=== PATIENT | female | born 1965 | race Caucasian/White ===

== ENCOUNTER 2021-08-18 15:58 | Inpatient (IN) | payer MEDICAID, SELFPAY ==
[~2021-08-18] VITALS: Ht 162.6 cm; Wt 80.7 kg
[2021-08-18 16:14] VITALS: BP_SYST 116
--- NOTE | 2021-08-18 16:14 | NUR ---
Pt to bed 8 for evaluation.
--- NOTE | 2021-08-18 16:15 | NUR ---
Pt AAO and ambulatory reporting blood in urine, cough, congestion, and SOB x 3 days. Pt reports that since she had Covid this past June that she has not been the same. Pt has had multiple episodes of vomiting today, reports headache, and rates pain 7/10 on pain scale. Pt also states that her appetite has been poor since then as well.
--- NOTE | 2021-08-18 16:15 | NUR ---
Dr. Wagner at bedside to assess.
[2021-08-18] MEDS ORDERED: ONDANSETRON 4 MG ODT TAB PO ONE (16:30)
--- NOTE | 2021-08-18 16:35 | NUR ---
Lab at bedside for blood draw.
[2021-08-18 16:45] LABS: BASOPHILS % (AUTO) 0.3 % (0.0-2.0); HEMATOCRIT 40.6 % (36-48); LYMPHOCYTES # (AUTO) 0.4 K/uL (1.0-5.5); LYMPHOCYTES % (AUTO) 2.6 % (20.5-51.5); MEAN CORPUSCULAR HEMOGLOBIN 36 pg (27-31); MEAN CORPUSCULAR HGB CONC 35 % (32-36); MEAN CORPUSCULAR VOLUME 104 fL (79.0-98.0); MONOCYTES # (AUTO) 0.5 K/uL (0.0-1.0); MONOCYTES % (AUTO) 3.3 % (1.7-9.3); NEUTROPHILS # (AUTO) 14.8 K/uL (1.8-7.7); NEUTROPHILS % (AUTO) 93.8 % (40.0-70.0); PLATELET COUNT (AUTO) 263 K/uL (130-430); RED BLOOD CELL COUNT(AUTO) 3.92 MIL/uL (4.2-6.2); RED CELL DISTRIBUTION WIDTH 16.4 % (9.0-15.0); WHITE BLOOD COUNT (AUTO) 15.8 K/uL (4.8-10.8)
[2021-08-18 16:57] LABS: BILIRUBIN,URINE 2+ (NEGATIVE); BLOOD, URINE 1+ (NEGATIVE); COLOR,URINE ORANGE (YELLOW); GLUCOSE,URINE TRACE (NEGATIVE); KETONES,URINE 1+ (NEGATIVE); LEUKOCYTE ESTERASE ,URINE 1+ (NEGATIVE); NITRITE, URINE POSITIVE (NEGATIVE); PH,URINE 5.5 (5.0-8.0); PROTEIN URINE 2+ (NEGATIVE)
[2021-08-18 17:07] LABS: INR 1.1 (0.8-1.2); PROTHROMBIN TIME 11.3 SECS (9.5-12.5)
[2021-08-18] MEDS ORDERED: NACL 0.9% 1,000 ML IV ONE (17:15)
[2021-08-18] MEDS ORDERED: METOCLOPRAMIDE HCL 10 MG/2 ML VIAL IVP ONE (17:15)
[2021-08-18] MEDS ORDERED: DIPHENHYDRAMINE INJ 50 MG/ML VIAL IVP ONE (17:15)
--- NOTE | 2021-08-18 17:15 | NUR ---
# 20 gauge angiocath placed to Right AC. Use of asceptic technique. Opsite placed over site. Blood return noted. Blood for lab drawn from site. Flushed with 10 cc of normal saline. No evidence of infiltration noted. Patient tolerated well.
--- NOTE | 2021-08-18 17:38 | NUR ---
Covid swab obtained and sent to lab for analysis.
[2021-08-18] MEDS ORDERED: VANCOMYCIN HCL 1000 MG/VIAL IV ONE (17:45)
[2021-08-18] MEDS ORDERED: PIPERACILLIN/TAZO 3.375 GM in NS 50 ML IV ONE (17:45)
[2021-08-18] MEDS ORDERED: PIPERACILLIN/TAZOBACTAM 3.375 GM/VIAL (ZOSYN) IV ONE ×2 (17:45→22:50)
[2021-08-18] MEDS ORDERED: NS 1000 ML IV.SOLN IV ONE (17:45)
[2021-08-18] MEDS ORDERED: VANCOMYCIN HCL 1,000 MG in NS 250 ML IV ONE (17:45)
[2021-08-18 17:56] LABS: ALBUMIN 2.6 g/dL (3.4-4.8); CALCIUM 8.4 mg/dL (8.4-11.0); CREATININE 1.04 mg/dL (0.55-1.30); TOTAL BILIRUBIN 1.9 mg/dL (0.0-1.0)
--- NOTE | 2021-08-18 18:14 | NUR ---
Pt resting quietly in no distress awaiting possible admission.
--- NOTE | 2021-08-18 18:33 | NUR ---
Portable CXR done at bedside.
[2021-08-18 18:48] LABS: C-REACTIVE PROTEIN QUANT 2.6 mg/dL (0-0.5)
--- NOTE | 2021-08-18 18:54 | NUR ---
Admit orders received from Dr. Ballard, pt to go to tele. Called to request bed placement, charge will call me back after shift change.
[2021-08-18] MEDS ORDERED: FAMOTIDINE PF 20 MG/2 ML VIAL IVP ONE (19:00)
--- NOTE | 2021-08-18 19:02 | NUR ---
Administered Pepcid 20mg IVP to Pt. Pt tolerated well. Medication verified with second RN Cong Schaffer.
[2021-08-18 19:05] LABS: CLARITY/URINE HAZY (CLEAR); UROBILINOGEN,URINE >=8 (0.2-1.0)
[2021-08-18] MEDS ORDERED: KCL 20 mEq in 100 mL (PREMIX) 200 ML IV ONE (19:05)
[2021-08-18] MEDS ORDERED: FAMOTIDINE PF 20 MG/2 ML VIAL ONE (19:05)
[2021-08-18 19:08] LABS: BACTERIA,URINE MANY /HPF (None Seen); RBC,URINE 20-50 /HPF (0-3)
--- NOTE | 2021-08-18 19:15 | NUR ---
# 20 gauge angiocath placed to left AC. Use of asceptic technique. Opsite placed over site. Blood return noted. Blood for lab drawn from site. Flushed with 10 cc of normal saline. No evidence of infiltration noted. Patient tolerated well.
--- NOTE | 2021-08-18 19:19 | NUR ---
Report given to AMALIA Alford who will assume care of pt.
[2021-08-18 19:30] LABS: TRICHOMONAS,URINE None Seen /HPF (None Seen); YEAST,URINE None Seen /HPF (None Seen)
--- NOTE | 2021-08-18 21:09 | NUR ---
Patient will be admitted to care of . Admitted to Telemetry unit. Will go to room 102B. Belongings list completed. Complete and up to date summary report printed. SBAR report to be given at bedside with opportunity for questions.
--- NOTE | 2021-08-18 21:16 | NUR ---
ADMIT NOTE Received pt from ER to the floor with a diagnosis of INTRACTABLE VOMITING. Admission process initiated. patient oriented to pain management, safety and call light-teach back done.
--- NOTE | 2021-08-18 21:31 | NUR ---
Paged Dr. Ballard [phone], s/w Nirmala
[2021-08-18 21:32] VITALS: BP_SYST 121
--- NOTE | 2021-08-18 21:42 | NUR ---
Dr. Ballard rounds Dr. Ballard at bedside to see patient
[2021-08-18] MEDS ORDERED: METOCLOPRAMIDE HCL 10 MG/2 ML VIAL IVP PRN (21:45)
[2021-08-18] MEDS ORDERED: POTASSIUM CHLORIDE 20 MEQ TAB.PRT.SR PO ONE (21:45)
[2021-08-18] MEDS ORDERED: KCL 20 mEq in 100 mL (PREMIX) 100 ML IV ONE (22:00)
[2021-08-18] MEDS ORDERED: MAG-AL HYDROX/SIMETH 30 ML UDC PO PRN (22:00)
[2021-08-18] MEDS: NACL 0.9% 1,000 ML IV SCH (22:23)
[2021-08-18] MEDS: ACETAMINOPHEN 325 MG TABLET PO PRN (22:27)
[2021-08-18] MEDS: ONDANSETRON HCL 4 MG/2 ML VIAL IVP PRN (22:50)
[2021-08-19] MEDS ORDERED: KCL 20 mEq in 100 mL (PREMIX) 100 ML IV ONE
--- NOTE | 2021-08-19 00:12 | NUR ---
PATIENT RESTING: Patient resting quietly. No acute distress noted. Vital signs within normal range.
[2021-08-19] MEDS: PIPERACILLIN/TAZO 3.375/DEX-IS 50 ML IV SCH ×4 (00:15→17:20)
[2021-08-19 00:18] VITALS: BP_SYST 154
[2021-08-19 06:24] LABS: BASOPHILS # (AUTO) 0.1 K/uL (0.0-0.2); BASOPHILS % (AUTO) 0.7 % (0.0-2.0); EOSINOPHILS # (AUTO) 0.1 K/uL (0.0-0.4); EOSINOPHILS % (AUTO) 0.8 % (0.0-4.0); HEMATOCRIT 33.8 % (36-48); HEMOGLOBIN 11.7 g/dL (12.0-16.0); LYMPHOCYTES # (AUTO) 0.7 K/uL (1.0-5.5); LYMPHOCYTES % (AUTO) 7.9 % (20.5-51.5); MEAN CORPUSCULAR HEMOGLOBIN 37 pg (27-31); MEAN CORPUSCULAR HGB CONC 35 % (32-36); MEAN CORPUSCULAR VOLUME 105 fL (79.0-98.0); MONOCYTES # (AUTO) 0.5 K/uL (0.0-1.0); MONOCYTES % (AUTO) 5.6 % (1.7-9.3); PLATELET COUNT (AUTO) 201 K/uL (130-430); RED BLOOD CELL COUNT(AUTO) 3.21 MIL/uL (4.2-6.2); RED CELL DISTRIBUTION WIDTH 16.5 % (9.0-15.0); WHITE BLOOD COUNT (AUTO) 8.3 K/uL (4.8-10.8)
--- NOTE | 2021-08-19 06:38 | NUR ---
CLOSING NOTES PATIENT AWAKE, NO COMPLAINTS AT THIS TIME, VITALS STABLE. ALL NEEDS ATTENDED TO. SAFETY MEASURES MAINTAINED. CALL LIGHT PLACED WITHIN REACH.
[2021-08-19 07:01] LABS: ALBUMIN 1.9 g/dL (3.4-4.8); CREATININE 0.65 mg/dL (0.55-1.30); TOTAL BILIRUBIN 1.7 mg/dL (0.0-1.0)
[2021-08-19] MEDS: NACL 0.9% 1,000 ML IV SCH ×2 (07:45→13:27)
[2021-08-19 08:00] VITALS: BP_SYST 130
[2021-08-19] MEDS: ONDANSETRON HCL 4 MG/2 ML VIAL IVP PRN ×2 (08:16→20:19)
[2021-08-19] MEDS: FAMOTIDINE PF 20 MG/2 ML VIAL IVP SCH ×2 (08:17→20:19)
[2021-08-19] MEDS: NEPHROVITE, (FOLIC ACID/VITAMIN B COMP W-C 1 TAB) PO SCH (08:19)
[2021-08-19] MEDS: THIAMINE HCL 100 MG TABLET PO SCH (08:19)
[2021-08-19] MEDS: ACETAMINOPHEN 325 MG TABLET PO PRN ×2 (08:19→16:51)
[2021-08-19] MEDS ORDERED: POTASSIUM CHLORIDE 20 MEQ TAB.PRT.SR PO SCH ×2 (09:00→21:00)
[2021-08-19 09:13] LABS: CALCIUM 7.1 mg/dL (8.4-11.0)
[2021-08-19] MEDS ORDERED: POTASSIUM CHLORIDE 20 MEQ/PKT PACKET PO ONE (10:45)
[2021-08-19] MEDS: LOPERAMIDE HCL 2 MG CAPSULE PO PRN ×2 (14:59→22:36)
[2021-08-19] MEDS ORDERED: POTASSIUM CHLORIDE 20 MEQ TAB.PRT.SR PO ONE (15:30)
[2021-08-19] MEDS ORDERED: MENTHOL/ZINC OXIDE 113 GM OINT. TP PRN (17:30)
[2021-08-19 18:00] VITALS: BP_SYST 128
--- NOTE | 2021-08-19 19:00 | NUR ---
RECEIVED BEDSIDE REPORT FROM RN. PT IN BED AWAKE RESTING IN BED. PT AOX4 4 ABLE TO MAKE NEEDS KNOWN. PT HAS BRP. CALL LIGHT WITHIN REACH. BED LOCKED IN LOWEST POSITION. WILL CONTINUE TO MONITOR.
--- NOTE | 2021-08-19 19:09 | NUR ---
Paged Dr. Ballard s/w Nirmala
[2021-08-19 20:17] VITALS: BP_SYST 115
[2021-08-19] MEDS: POTASSIUM CHLORIDE 20 MEQ TAB.PRT.SR PO SCH (20:18)
[2021-08-19] MEDS: RIFAXIMIN 550 MG TABLET PO SCH (20:18)
[2021-08-19] MEDS: traMADol HCL HCL 50 MG TABLET (ULTRAM) PO PRN (20:19)
[2021-08-19] MEDS: TEMAZEPAM 15 MG CAPSULE PO PRN (22:37)
[2021-08-20] MEDS: PIPERACILLIN/TAZO 3.375/DEX-IS 50 ML IV SCH ×5 (00:57→23:05)
[2021-08-20] MEDS: NACL 0.9% 1,000 ML IV SCH ×3 (03:45→23:05)
[2021-08-20 04:28] VITALS: BP_SYST 112
[2021-08-20] MEDS: traMADol HCL HCL 50 MG TABLET (ULTRAM) PO PRN ×3 (04:33→18:03)
[2021-08-20 06:53] LABS: BASOPHILS % (AUTO) 0.9 % (0.0-2.0); EOSINOPHILS # (AUTO) 0.2 K/uL (0.0-0.4); EOSINOPHILS % (AUTO) 3.4 % (0.0-4.0); HEMATOCRIT 34.7 % (36-48); HEMOGLOBIN 11.8 g/dL (12.0-16.0); LYMPHOCYTES # (AUTO) 1.2 K/uL (1.0-5.5); LYMPHOCYTES % (AUTO) 21.3 % (20.5-51.5); MEAN CORPUSCULAR HEMOGLOBIN 36 pg (27-31); MEAN CORPUSCULAR HGB CONC 34 % (32-36); MEAN CORPUSCULAR VOLUME 106 fL (79.0-98.0); MONOCYTES # (AUTO) 0.4 K/uL (0.0-1.0); MONOCYTES % (AUTO) 6.8 % (1.7-9.3); NEUTROPHILS # (AUTO) 3.7 K/uL (1.8-7.7); NEUTROPHILS % (AUTO) 67.6 % (40.0-70.0); PLATELET COUNT (AUTO) 202 K/uL (130-430); RED BLOOD CELL COUNT(AUTO) 3.26 MIL/uL (4.2-6.2); RED CELL DISTRIBUTION WIDTH 16.7 % (9.0-15.0); WHITE BLOOD COUNT (AUTO) 5.5 K/uL (4.8-10.8)
[2021-08-20 07:12] LABS: CALCIUM 7.4 mg/dL (8.4-11.0); CREATININE 0.62 mg/dL (0.55-1.30); POTASSIUM 3.2 mmol/L (3.5-5.1); TOTAL BILIRUBIN 0.9 mg/dL (0.0-1.0)
[2021-08-20 08:00] VITALS: BP_SYST 112
[2021-08-20 08:06] LABS: HEPATITIS A AB, IgM Negative (Negative); HEPATITIS B CORE AB, IgM Negative (Negative); HEPATITIS B SURFACE AG Negative (Negative)
[2021-08-20] MEDS: FAMOTIDINE PF 20 MG/2 ML VIAL IVP SCH ×2 (09:25→20:33)
[2021-08-20] MEDS: NEPHROVITE, (FOLIC ACID/VITAMIN B COMP W-C 1 TAB) PO SCH (09:26)
[2021-08-20] MEDS: THIAMINE HCL 100 MG TABLET PO SCH (09:26)
[2021-08-20] MEDS: POTASSIUM CHLORIDE 20 MEQ TAB.PRT.SR PO SCH ×2 (09:26→20:33)
[2021-08-20] MEDS: RIFAXIMIN 550 MG TABLET PO SCH ×2 (09:29→20:33)
[2021-08-20] MEDS: LOPERAMIDE HCL 2 MG CAPSULE PO PRN ×2 (09:31→23:05)
--- NOTE | 2021-08-20 09:50 | NUR ---
INFORMED RN SEDA THAT THE PATIENT HAS BEEN OFF THE TELE MONITOR SINCE 8:48
--- NOTE | 2021-08-20 14:26 | NUR ---
Dietitian Recommendations * Recommend continuing clear liquid diet * Consider advance to low-fat if/when medically appropriate. Please see Nutritional Assessment
[2021-08-20] MEDS ORDERED: POTASSIUM CHLORIDE 20 MEQ TAB.PRT.SR PO ONE (17:00)
--- NOTE | 2021-08-20 17:16 | NUR ---
CONSULTATION PAGED/CALLED Reason for Consultation: DIARREHA AND HIGH BILI Person Who was Notified: LYNETTE Consulting Physician: LILLIAN/ FAITH MACHINE OPERATOR HELPER Advanced Practice Professional Specialty: GI Ordering Physician: JUAN
--- NOTE | 2021-08-20 19:00 | NUR ---
OPENING NOTES PATIENT RESTING, NO SIGNS OF DISCOMFORT AT THIS TIME. DISCUSSED PLAN OF CARE WITH PATIENT. CALL LIGHT WITHIN REACH, BED ALARM ON, BED LOCKED, BED AT LOWEST POSITION. PATIENT DEMONSTRATES PROPER CALL LIGHT USAGE. FALL, RESPIRATORY, ASPIRATION, AND SAFETY PRECAUTIONS IN PLACE. WAS ENDORSED TO SEND STOOL SAMPLE. WILL CONTINUE TO MONITOR.
--- NOTE | 2021-08-20 19:32 | NUR ---
PT HAS BEEN STABLE, PT STILL HAVING DIARRHEA BUT NO C/O NAUSEA OR VOMITING. DR MARTINEZ SAW PT AND NEW ORDERDERS GIVEN. PT HAS CT OF HEAD. ENDORSED TO NIGHT NURSE. ALL NEEDS ATTENDED TO AND MET.
[2021-08-20 20:00] VITALS: BP_SYST 122
[2021-08-20] MEDS: LORazepam 2 MG/ML VIAL IVP PRN (20:35)
[2021-08-20] MEDS: TEMAZEPAM 15 MG CAPSULE PO PRN (23:05)
[2021-08-21] VITALS: BP_SYST 105
--- NOTE | 2021-08-21 00:16 | NUR ---
PATIENT RESTING, NO SIGNS OF RESPIRATORY DISTRESS. PATIENT NO LONGER WISHES TO CHANGE ROOM AT THIS TIME. NO NEEDS AT THIS TIME. WILL CONTINUE TO MONITOR.
--- NOTE | 2021-08-21 03:51 | NUR ---
PATIENT AMBULATES TO THE RESTROOM, NO SIGNS OF DISTRESS NOTED. WILL CONTINUE TO MONITOR.
[2021-08-21] MEDS: PIPERACILLIN/TAZO 3.375/DEX-IS 50 ML IV SCH ×2 (05:08→11:25)
--- NOTE | 2021-08-21 06:27 | NUR ---
CLOSING NOTES PATIENT RESTING, NO SIGNS OF DISTRESS THROUGHOUT SHIFT. CALL LIGHT WITHIN REACH, BED ALARM ON, BED LOCKED, BED AT LOWEST POSITION. PATIENT USED CALL LIGHT THROUGHOUT SHIFT. FALL, RESPIRATORY, ASPIRATION, AND SAFETY PRECAUTIONS IN PLACE THROUGHOUT SHIFT. ALL NEEDS MET THROUGHOUT SHIFT. WILL ENDORSE CARE TO ONCOMING SHIFT.
[2021-08-21 06:47] LABS: CALCIUM 7.6 mg/dL (8.4-11.0); CREATININE 0.48 mg/dL (0.55-1.30); POTASSIUM 3.9 mmol/L (3.5-5.1); TOTAL BILIRUBIN 0.7 mg/dL (0.0-1.0)
[2021-08-21 07:13] LABS: EOSINOPHILS # (AUTO) 0.2 K/uL (0.0-0.4); EOSINOPHILS % (AUTO) 4.1 % (0.0-4.0); HEMATOCRIT 33.8 % (36-48); HEMOGLOBIN 11.3 g/dL (12.0-16.0); LYMPHOCYTES # (AUTO) 1.1 K/uL (1.0-5.5); LYMPHOCYTES % (AUTO) 23.5 % (20.5-51.5); MEAN CORPUSCULAR HEMOGLOBIN 36 pg (27-31); MEAN CORPUSCULAR HGB CONC 34 % (32-36); MEAN CORPUSCULAR VOLUME 107 fL (79.0-98.0); MONOCYTES # (AUTO) 0.4 K/uL (0.0-1.0); MONOCYTES % (AUTO) 7.9 % (1.7-9.3); NEUTROPHILS # (AUTO) 2.9 K/uL (1.8-7.7); NEUTROPHILS % (AUTO) 63.5 % (40.0-70.0); PLATELET COUNT (AUTO) 234 K/uL (130-430); RED BLOOD CELL COUNT(AUTO) 3.15 MIL/uL (4.2-6.2); RED CELL DISTRIBUTION WIDTH 16.7 % (9.0-15.0); WHITE BLOOD COUNT (AUTO) 4.5 K/uL (4.8-10.8)
[2021-08-21 08:30] VITALS: BP_SYST 130
[2021-08-21] MEDS: POTASSIUM CHLORIDE 20 MEQ TAB.PRT.SR PO SCH ×2 (09:04→21:00)
[2021-08-21] MEDS: RIFAXIMIN 550 MG TABLET PO SCH ×2 (09:04→21:00)
[2021-08-21] MEDS: THIAMINE HCL 100 MG TABLET PO SCH (09:04)
[2021-08-21] MEDS: FAMOTIDINE PF 20 MG/2 ML VIAL IVP SCH ×2 (09:04→22:16)
[2021-08-21] MEDS: NEPHROVITE, (FOLIC ACID/VITAMIN B COMP W-C 1 TAB) PO SCH (09:05)
--- NOTE | 2021-08-21 09:05 | NUR ---
Scheduled po medications given per order. Patient resting comfortably in bed at this time.
[2021-08-21] MEDS: CHOLESTYRAMINE/SUCROSE 4 GM/PACKET PO SCH ×3 (09:23→21:00)
[2021-08-21] MEDS: traMADol HCL HCL 50 MG TABLET (ULTRAM) PO PRN (09:24)
--- NOTE | 2021-08-21 09:25 | NUR ---
Patient ambulated to bathroom and back to bed. Patient medicated for 6 headache. Stable at this tie
[2021-08-21] MEDS: NACL 0.9% 1,000 ML IV SCH ×2 (09:54→19:45)
--- NOTE | 2021-08-21 09:55 | NUR ---
Patient ambulated to bathroom and back to bed; patient sitting on side of bed at this time. Started new IVF bag.
[2021-08-21] MEDS: LORazepam 2 MG/ML VIAL IVP PRN (11:22)
--- NOTE | 2021-08-21 11:25 | NUR ---
Patient ambulated to bathroom and back to bed. Scheduled IV abx given per order. Patient medicated for anxiety as well. Patient stable at this time.
[2021-08-21] MEDS ORDERED: NEPH PO (16:31)
[2021-08-21] MEDS ORDERED: Thiamine Hcl PO (16:31)
[2021-08-21] MEDS: CEPHALEXIN 250 MG/5 ML, 100 ML BTL PO SCH (18:00)
--- NOTE | 2021-08-21 19:30 | NUR ---
Opening note Received patient report from morning nurse. Patient in bed, AAOx4, non labored on room air, no s/s of SOB. IVF running no compliant of discomfort or complications noted at this time. Pt voiced concerns regarding Dr. Faust's plan to do colonoscopy. When seen by Dr. Faust pt refused to do colonoscopy; bowel prep was not done and pt was not on NPO at the time. Pt stated she wants the colonoscopy procedure now and says she was told her insurance will not cover her stay till Thursday. She understands she may have to do the procedure as out pt. Educated patient on plan of care and call light usage for assistance Patient verbalized understanding. All needs provided.
[2021-08-21 20:00] VITALS: BP_SYST 134
--- NOTE | 2021-08-21 21:00 | NUR ---
note Spoke to Dr. Lacy due to multiple page for Dr. Faust during the day. Updated on pts status and concerns on colonoscopy procedure. Dr. Lacy states, since there is no order for colonoscopy from Dr. Faust; wait for further orders when Dr. Faust make rounds.
[2021-08-22] VITALS: BP_SYST 129
[2021-08-22] MEDS: CEPHALEXIN 250 MG/5 ML, 100 ML BTL PO SCH
[2021-08-22] MEDS: TEMAZEPAM 15 MG CAPSULE PO PRN ×2 (01:18→23:30)
--- NOTE | 2021-08-22 01:30 | NUR ---
note pt resting in bed awake. No distress note
[2021-08-22] MEDS ORDERED: cephALEXin 500 MG CAPSULE ONE ×2 (01:57→05:35)
--- NOTE | 2021-08-22 06:00 | NUR ---
note page Dr. Elio MD ok to change Keflex from liquid to capsule.
[2021-08-22] MEDS: NACL 0.9% 1,000 ML IV SCH ×2 (06:09→15:58)
--- NOTE | 2021-08-22 06:37 | NUR ---
Closing note Patient resting in bed, AAOx4, non labored on room air, no s/s of SOB. IVF running no compliant of discomfort or complications noted at this time. No new changes throughout the night. No compliant of pain or discomfort. Call light within reach. Bed to lowest/locked. On aspiration/fall precaution.
[2021-08-22] MEDS: cephALEXin 500 MG CAPSULE PO SCH ×4 (06:59→23:26)
[2021-08-22 07:17] LABS: ALBUMIN 2.2 g/dL (3.4-4.8); BILIRUBIN,DIRECT 0.4 mg/dL (0.0-0.3); TOTAL BILIRUBIN 0.8 mg/dL (0.0-1.0)
--- NOTE | 2021-08-22 07:40 | NUR ---
Opening note Patient is resting in bed A&Ox4 complains of headache and anxiety, will provide PRN medication. No signs or symptoms of respiratory distress, IV is infusing, no signs or symptoms of infiltration. Educated patient on plan of care, patient verbalized understanding. Bed is in lowest position, call light within reach fall and aspiration precaution s are in place. Will continue to monitor.
[2021-08-22 08:00] VITALS: BP_SYST 141
[2021-08-22] MEDS: CHOLESTYRAMINE/SUCROSE 4 GM/PACKET PO SCH ×3 (09:04→20:35)
[2021-08-22] MEDS: FAMOTIDINE PF 20 MG/2 ML VIAL IVP SCH ×2 (09:04→20:20)
[2021-08-22] MEDS: POTASSIUM CHLORIDE 20 MEQ TAB.PRT.SR PO SCH ×2 (09:05→20:35)
[2021-08-22] MEDS: NEPHROVITE, (FOLIC ACID/VITAMIN B COMP W-C 1 TAB) PO SCH (09:05)
[2021-08-22] MEDS: THIAMINE HCL 100 MG TABLET PO SCH (09:05)
[2021-08-22] MEDS: RIFAXIMIN 550 MG TABLET PO SCH ×2 (09:05→20:35)
[2021-08-22] MEDS: traMADol HCL HCL 50 MG TABLET (ULTRAM) PO PRN ×2 (09:06→17:46)
[2021-08-22] MEDS: LORazepam 2 MG/ML VIAL IVP PRN (09:07)
--- NOTE | 2021-08-22 09:20 | NUR ---
MD rounds Dr. Padilla into see the patient, updated on current status. MD educated patient on colonoscopy. New orders received and placed.
[2021-08-22 12:23] VITALS: BP_SYST 124
[2021-08-22] MEDS ORDERED: BISACODYL 5 MG TABLET.DR (DULCOLAX) PO ONE (17:00)
[2021-08-22 17:55] VITALS: BP_SYST 137
[2021-08-22] MEDS ORDERED: GOLYTELY / COLYTE SOLUTION 4 LITERS PO ONE (18:00)
--- NOTE | 2021-08-22 18:35 | NUR ---
Closing note Patient is resting in bed A&Ox4 no complaint of pain or discomfort. No signs or symptoms of respiratory distress, IV is infusing, no signs or symptoms of infiltration. All needs were met. Bed is in lowest position, call light within reach fall and aspiration precaution s are in place. Will endorse report to wind energy mechanic.
--- NOTE | 2021-08-22 19:30 | NUR ---
Opening note Patient is resting in bed A&Ox4, sitting at the edge of bed. No signs or symptoms of respiratory distress, on room air. IV is infusing, no signs or symptoms of infiltration. Currently on golytely and tolerating well. Educated patient on plan of care, patient verbalized understanding. Bed is in lowest position/locked, call light within reach. On fall/aspiration precaution. Will continue to monitor.
[2021-08-22 20:00] VITALS: BP_SYST 139
--- NOTE | 2021-08-23 | NUR ---
note pt wasnt able to finish the whole bottle of golytely, about a quarter left in the bottle. stool is clear and still currently have BMs. Will continue to monitor.
[2021-08-23 00:55] VITALS: BP_SYST 147
[2021-08-23] MEDS: NACL 0.9% 1,000 ML IV SCH ×2 (02:21→12:07)
[2021-08-23] MEDS: cephALEXin 500 MG CAPSULE PO SCH ×2 (05:40→12:07)
--- NOTE | 2021-08-23 05:42 | NUR ---
note pts stool is still clear/yellow in color. And no discomfort at this time.
--- NOTE | 2021-08-23 06:38 | NUR ---
Closing note Patient is resting in bed A&Ox4. No signs or symptoms of respiratory distress, on room air. IV is infusing, no signs or symptoms of infiltration or complications. Educated patient on plan of care and procedure. Provided z guard and instruction how to use, pt complaining of discomfort in the connie area due to bowel prep. Patient verbalized understanding. Bed is in lowest position/locked, call light within reach. On fall/aspiration precaution. Will endorse to day nurse.
[2021-08-23 06:44] LABS: BASOPHILS % (AUTO) 0.7 % (0.0-2.0); EOSINOPHILS # (AUTO) 0.2 K/uL (0.0-0.4); EOSINOPHILS % (AUTO) 2.9 % (0.0-4.0); HEMATOCRIT 36.2 % (36-48); HEMOGLOBIN 12.3 g/dL (12.0-16.0); LYMPHOCYTES % (AUTO) 18.5 % (20.5-51.5); MEAN CORPUSCULAR HEMOGLOBIN 36 pg (27-31); MEAN CORPUSCULAR HGB CONC 34 % (32-36); MEAN CORPUSCULAR VOLUME 106 fL (79.0-98.0); MONOCYTES # (AUTO) 0.4 K/uL (0.0-1.0); MONOCYTES % (AUTO) 6.9 % (1.7-9.3); NEUTROPHILS # (AUTO) 3.8 K/uL (1.8-7.7); PLATELET COUNT (AUTO) 250 K/uL (130-430); RED CELL DISTRIBUTION WIDTH 16.6 % (9.0-15.0); WHITE BLOOD COUNT (AUTO) 5.4 K/uL (4.8-10.8)
[2021-08-23 07:27] LABS: ALBUMIN 2.2 g/dL (3.4-4.8); CALCIUM 8.6 mg/dL (8.4-11.0); CREATININE 0.4 mg/dL (0.55-1.30); POTASSIUM 4.4 mmol/L (3.5-5.1); TOTAL BILIRUBIN 1.1 mg/dL (0.0-1.0)
[2021-08-23] MEDS: MIDAZOLAM HCL 5 MG/5 ML VIAL ONE ×2 (07:36→07:38)
[2021-08-23] MEDS: fentaNYL CITRATE/PF 100 MCG/2 ML AMP ONE ×2 (07:36→07:38)
[2021-08-23 08:15] LABS: INR 1.1 (0.8-1.2); PROTHROMBIN TIME 11.4 SECS (9.5-12.5)
[2021-08-23] MEDS: FAMOTIDINE PF 20 MG/2 ML VIAL IVP SCH (08:55)
--- NOTE | 2021-08-23 08:58 | NUR ---
Scheduled IVP medication given per order. Patient stable; resting comfortably in bed with no distress noted and no complaint of pain.
[2021-08-23] MEDS: CHOLESTYRAMINE/SUCROSE 4 GM/PACKET PO SCH (09:00)
[2021-08-23] MEDS: RIFAXIMIN 550 MG TABLET PO SCH (09:01)
[2021-08-23] MEDS: POTASSIUM CHLORIDE 20 MEQ TAB.PRT.SR PO SCH (09:01)
[2021-08-23] MEDS: NEPHROVITE, (FOLIC ACID/VITAMIN B COMP W-C 1 TAB) PO SCH (09:01)
[2021-08-23] MEDS: THIAMINE HCL 100 MG TABLET PO SCH (09:01)
--- NOTE | 2021-08-23 09:22 | NUR ---
received no report after the colonoscopy, patient upset " no food for so many days, want to eat now, i dont care about US abdomen, alert, oriented, and compliant after food given regular food given, willing to take meds, did not want to bother with ivf. No complaint of nausea, nor vomitting, will talk to attending about ivf, whether it should be continued
[2021-08-23 09:32] VITALS: BP_SYST 138
[2021-08-23] MEDS: ACETAMINOPHEN 325 MG TABLET PO PRN (09:59)
[2021-08-23] MEDS: LORazepam 2 MG/ML VIAL IVP PRN (09:59)
[2021-08-23] MEDS: traMADol HCL HCL 50 MG TABLET (ULTRAM) PO PRN (10:06)
[2021-08-23 11:33] VITALS: BP_SYST 129
[2021-08-23 13:51] VITALS: BP_SYST 128
--- NOTE | 2021-08-23 14:36 | NUR ---
us abdomen not done, seen by attending discharged the patient to home today. RX given, instructed to have it filled, HL out, patient is discharged
== END 2021-08-23 14:25 | disposition home or self-care (01) | DRG 720 ==
LOC: SED 15:58 → STU 18:48 → SMU 08-20 19:29
PROVIDERS: ADMIT Internal Medicine; ATTEND Internal Medicine
PROC: 0DBE8ZZ Excision of Large Intestine, Via Natural or Artificial Opening Endoscopic (ICD-10-PCS; 2021-08-23)
PROC: 0DBE8ZX Excision of Large Intestine, Via Natural or Artificial Opening Endoscopic, Diagnostic (ICD-10-PCS; principal; 2021-08-23 08:00)
DX: A41.9 Sepsis, unspecified organism (principal); E43 Unspecified severe protein-calorie malnutrition; K70.10 Alcoholic hepatitis without ascites; N39.0 Urinary tract infection, site not specified; E87.6 Hypokalemia; E80.6 Other disorders of bilirubin metabolism; D64.9 Anemia, unspecified; R19.7 Diarrhea, unspecified; K63.5 Polyp of colon; K62.1 Rectal polyp; K57.30 Diverticulosis of large intestine without perforation or abscess without bleeding; Z20.822 Contact with and (suspected) exposure to COVID-19; Z90.49 Acquired absence of other specified parts of digestive tract; Z98.84 Bariatric surgery status; Z68.30 Body mass index [BMI] 30.0-30.9, adult
CPT/HCPCS: 36415; 70450-TC; 71045; 76376; 80053; 80061; 80074; 80076; 81000; 82150; 83605; 83690; 83735; 84484; 84703; 85025; 85610-TC; 85730-TC; 86140; 87040-TC; 87045-TC; 87046; 87086; 87177; 87230-TC; 88305; 89055; 96365; 96366; 96367; 96375; 99285; G0378; J1200; J2060; J2250; J2405; J2543; J2765; J3010; J3370; J3480; J3490; Q0162

== ENCOUNTER 2021-09-21 11:36 | Emergency (ER) | payer MEDICAID, SELFPAY ==
[~2021-09-21] VITALS: Ht 162.6 cm; Wt 79.4 kg
[~2021-09-21 11:36] MED LIST: NEPH PO; Thiamine Hcl PO
[2021-09-21 11:42] VITALS: BP_SYST 140
--- NOTE | 2021-09-21 11:47 | NUR ---
AMBULATED TO BED3
--- NOTE | 2021-09-21 11:51 | NUR ---
Dr. Wagner at bedside
[2021-09-21] MEDS ORDERED: ONDANSETRON 4 MG ODT TAB PO ONE (12:00)
[2021-09-21 12:24] LABS: CALCIUM 9.3 mg/dL (8.4-11.0); CREATININE 1.21 mg/dL (0.55-1.30); POTASSIUM 3.6 mmol/L (3.5-5.1)
[2021-09-21 12:30] LABS: ALBUMIN 2.9 g/dL (3.4-4.8); TOTAL BILIRUBIN 0.8 mg/dL (0.0-1.0)
[2021-09-21 12:42] LABS: C-REACTIVE PROTEIN QUANT 1.8 mg/dL (0-0.5)
[2021-09-21 12:43] LABS: BASOPHILS # (AUTO) 0.1 K/uL (0.0-0.2); EOSINOPHILS # (AUTO) 0.2 K/uL (0.0-0.4); EOSINOPHILS % (AUTO) 2.8 % (0.0-4.0); HEMATOCRIT 39.4 % (36-48); HEMOGLOBIN 13.8 g/dL (12.0-16.0); LYMPHOCYTES # (AUTO) 1.4 K/uL (1.0-5.5); LYMPHOCYTES % (AUTO) 21.4 % (20.5-51.5); MEAN CORPUSCULAR HEMOGLOBIN 36 pg (27-31); MEAN CORPUSCULAR HGB CONC 35 % (32-36); MEAN CORPUSCULAR VOLUME 102 fL (79.0-98.0); MONOCYTES # (AUTO) 0.3 K/uL (0.0-1.0); MONOCYTES % (AUTO) 4.9 % (1.7-9.3); NEUTROPHILS # (AUTO) 4.7 K/uL (1.8-7.7); NEUTROPHILS % (AUTO) 69.9 % (40.0-70.0); PLATELET COUNT (AUTO) 323 K/uL (130-430); RED BLOOD CELL COUNT(AUTO) 3.85 MIL/uL (4.2-6.2); RED CELL DISTRIBUTION WIDTH 13.4 % (9.0-15.0); WHITE BLOOD COUNT (AUTO) 6.7 K/uL (4.8-10.8)
--- NOTE | 2021-09-21 12:47 | NUR ---
PT IS STABLE, STATED SHE HAD SEPSIS AND COVID OVER THIS LAST YEAR. PT STATED SHE WAS A HEAVY DRINKER, AND HAS BEEN SOBER FOR 5 WEEKS. PT MAY HAVE WITHDRAWL SYMPTOMS.
[2021-09-21 13:03] LABS: BILIRUBIN,URINE NEGATIVE (NEGATIVE); CLARITY/URINE SL CLOUDY (CLEAR); COLOR,URINE YELLOW (YELLOW); GLUCOSE,URINE NEGATIVE (NEGATIVE); KETONES,URINE NEGATIVE (NEGATIVE); LEUKOCYTE ESTERASE ,URINE TRACE (NEGATIVE); NITRITE, URINE NEGATIVE (NEGATIVE); PROTEIN URINE NEGATIVE (NEGATIVE)
[2021-09-21 13:05] LABS: BLOOD, URINE TRACE (NEGATIVE)
[2021-09-21] MEDS ORDERED: HYDR-3917 PO (13:29)
[2021-09-21] MEDS ORDERED: ONDA-8 TL (13:29)
[2021-09-21] MEDS ORDERED: OMEP20CA15 PO (13:29)
[2021-09-21 13:33] LABS: BACTERIA,URINE RARE /HPF (None Seen)
--- NOTE | 2021-09-21 13:50 | NUR ---
Patient given written and verbal discharge instructions and verbalizes understanding. ER MD discussed with patient the results and treatment provided. Patient in stable condition. ID arm band removed. Rx of NORCO given. Patient educated on pain management and to follow up with PMD. Pain Scale 0/10. Opportunity for questions provided and answered. Medication side effect fact sheet provided.
[2021-09-21 14:01] VITALS: BP_SYST 140
== END 2021-09-21 13:50 | disposition home or self-care (01) ==
LOC: SED 11:36
DX: R10.9 Unspecified abdominal pain (principal); R11.10 Vomiting, unspecified; Z79.899 Other long term (current) drug therapy
CPT/HCPCS: 36415; 80053; 81000; 82150; 83605; 83690; 84484; 84703; 85025; 85610; 85730; 86140; 99283; Q0162

== ENCOUNTER 2022-01-29 11:37 | Inpatient (IN) | payer MEDICAID, SELFPAY ==
[~2022-01-29] VITALS: Ht 162.6 cm; Wt 78.5 kg
[~2022-01-29 11:37] MED LIST changes: +HYDR-3917 PO; +OMEP20CA15 PO; +ONDA-8 TL
[2022-01-29 11:45] VITALS: BP_SYST 136
[2022-01-29] MEDS ORDERED: LORazepam 2 MG/ML VIAL IVP ONE ×2 (12:15→15:30)
[2022-01-29] MEDS ORDERED: FOLIC ACID 1 MG, THIAMINE HCL 100 MG, MAGNESIUM SULFATE 1 GM, MVI 10 ML in NACL 0.9% 1,... IV ONE (12:15)
[2022-01-29] MEDS ORDERED: ONDANSETRON HCL 4 MG/2 ML VIAL IVP ONE (12:15)
[2022-01-29] MEDS ORDERED: PANTOPRAZOLE SODIUM 40 MG/VIAL (PROTONIX) IVP ONE (12:15)
[2022-01-29 12:39] LABS: HEMOGLOBIN 13.1 g/dL (12.0-16.0)
[2022-01-29 12:44] LABS: BASOPHILS # (AUTO) 0.1 K/uL (0.0-0.2); BASOPHILS % (AUTO) 1.1 % (0.0-2.0); HEMATOCRIT 38.6 % (36-48); LYMPHOCYTES # (AUTO) 0.6 K/uL (1.0-5.5); LYMPHOCYTES % (AUTO) 7.5 % (20.5-51.5); MEAN CORPUSCULAR HEMOGLOBIN 37 pg (27-31); MEAN CORPUSCULAR HGB CONC 34 % (32-36); MEAN CORPUSCULAR VOLUME 108 fL (79.0-98.0); MONOCYTES # (AUTO) 0.3 K/uL (0.0-1.0); MONOCYTES % (AUTO) 3.9 % (1.7-9.3); NEUTROPHILS # (AUTO) 7.5 K/uL (1.8-7.7); NEUTROPHILS % (AUTO) 87.5 % (40.0-70.0); PLATELET COUNT (AUTO) 175 K/uL (130-430); RED BLOOD CELL COUNT(AUTO) 3.56 MIL/uL (4.2-6.2); RED CELL DISTRIBUTION WIDTH 17.2 % (9.0-15.0); WHITE BLOOD COUNT (AUTO) 8.6 K/uL (4.8-10.8)
[2022-01-29] MEDS ORDERED: MAGNESIUM SULFATE 1 GM/2 ML VIAL ONE (12:48)
[2022-01-29] MEDS ORDERED: MVI 10 ML VIAL IV ONE (12:48)
[2022-01-29] MEDS ORDERED: FOLIC ACID 5 MG/ML VIAL IV ONE (12:48)
[2022-01-29] MEDS ORDERED: THIAMINE HCL 100 MG/ML VIAL ONE (12:48)
[2022-01-29 13:07] LABS: ALANINE AMINOTRANSFERASE 51 U/L (12-78); ALBUMIN 2.3 g/dL (3.4-4.8); ANION GAP 11 (5-15); ASPARTATE AMINOTRANSFERASE 241 U/L (10-37); CALCIUM 8.5 mg/dL (8.4-11.0); CHLORIDE 100 mmol/L (98-107); CREATININE 0.93 mg/dL (0.55-1.30); GLUCOSE 116 mg/dL (70-99); LIPASE 59 U/L (73-393); POTASSIUM 4.1 mmol/L (3.5-5.1); SODIUM SERUM 137 mmol/L (136-145); TOTAL BILIRUBIN 3.4 mg/dL (0.0-1.0); UREA NITROGEN, BLOOD 3 mg/dL (8-21)
[2022-01-29 13:32] LABS: GFR AFRICAN AMERICAN 81 mL/min (>90)
[2022-01-29 13:33] LABS: ALCOHOL, BLOOD < 3 mg/dL (<10)
[2022-01-29] MEDS: chlordiazePOXIDE HCL 25 MG CAPSULE PO SCH (20:49)
[2022-01-29] MEDS: D5/0.45 NS 1,000 ML IV SCH (21:07)
[2022-01-29 22:07] VITALS: BP_SYST 118
[2022-01-30] MEDS: MORPHINE 2 MG/ML INJ. SYRINGE IVP PRN ×3 (00:23→16:22)
[2022-01-30 01:20] VITALS: BP_SYST 118
[2022-01-30 01:37] VITALS: BP_SYST 100
[2022-01-30 07:50] LABS: BASOPHILS % (AUTO) 0.6 % (0.0-2.0); EOSINOPHILS # (AUTO) 0.1 K/uL (0.0-0.4); EOSINOPHILS % (AUTO) 0.9 % (0.0-4.0); HEMATOCRIT 31.8 % (36-48); HEMOGLOBIN 10.8 g/dL (12.0-16.0); LYMPHOCYTES # (AUTO) 1.1 K/uL (1.0-5.5); LYMPHOCYTES % (AUTO) 15.1 % (20.5-51.5); MEAN CORPUSCULAR HEMOGLOBIN 37 pg (27-31); MEAN CORPUSCULAR HGB CONC 34 % (32-36); MEAN CORPUSCULAR VOLUME 109 fL (79.0-98.0); MONOCYTES # (AUTO) 0.3 K/uL (0.0-1.0); MONOCYTES % (AUTO) 3.7 % (1.7-9.3); NEUTROPHILS # (AUTO) 5.6 K/uL (1.8-7.7); NEUTROPHILS % (AUTO) 79.7 % (40.0-70.0); PLATELET COUNT (AUTO) 141 K/uL (130-430); RED BLOOD CELL COUNT(AUTO) 2.91 MIL/uL (4.2-6.2); RED CELL DISTRIBUTION WIDTH 16.5 % (9.0-15.0)
[2022-01-30 08:00] VITALS: BP_SYST 121
[2022-01-30 08:00] LABS: ALBUMIN 1.7 g/dL (3.4-4.8); CALCIUM 8.4 mg/dL (8.4-11.0); CREATININE 0.7 mg/dL (0.55-1.30); POTASSIUM 3.7 mmol/L (3.5-5.1); TOTAL BILIRUBIN 3.7 mg/dL (0.0-1.0)
[2022-01-30] MEDS: ONDANSETRON HCL 4 MG/2 ML VIAL IVP PRN ×2 (08:24→21:07)
[2022-01-30] MEDS: chlordiazePOXIDE HCL 25 MG CAPSULE PO SCH (08:28)
[2022-01-30 12:00] VITALS: BP_SYST 106
[2022-01-30] MEDS: D5/0.45 NS 1,000 ML IV SCH (16:25)
[2022-01-30 16:51] LABS: BILIRUBIN,URINE 2+ (NEGATIVE); CLARITY/URINE CLOUDY (CLEAR); GLUCOSE,URINE TRACE (NEGATIVE); KETONES,URINE TRACE (NEGATIVE); LEUKOCYTE ESTERASE ,URINE 2+ (NEGATIVE); NITRITE, URINE POSITIVE (NEGATIVE); PROTEIN URINE TRACE (NEGATIVE)
[2022-01-30 16:58] VITALS: BP_SYST 114
[2022-01-30 18:43] LABS: BLOOD, URINE TRACE (NEGATIVE); COLOR,URINE AMBER (YELLOW); UROBILINOGEN,URINE >=8 (0.2-1.0)
[2022-01-30 19:05] LABS: BACTERIA,URINE MANY /HPF (None Seen); MUCUS,URINE None Seen /LPF (None Seen); WBC,URINE 20-50 /HPF (0-3)
[2022-01-31 00:04] VITALS: BP_SYST 95
[2022-01-31 04:00] VITALS: BP_SYST 111
[2022-01-31] MEDS: MORPHINE 2 MG/ML INJ. SYRINGE IVP PRN (04:09)
[2022-01-31 07:01] LABS: BASOPHILS % (AUTO) 0.5 % (0.0-2.0); EOSINOPHILS # (AUTO) 0.1 K/uL (0.0-0.4); EOSINOPHILS % (AUTO) 1.3 % (0.0-4.0); HEMATOCRIT 31.3 % (36-48); HEMOGLOBIN 10.6 g/dL (12.0-16.0); LYMPHOCYTES # (AUTO) 1.1 K/uL (1.0-5.5); LYMPHOCYTES % (AUTO) 17.3 % (20.5-51.5); MEAN CORPUSCULAR HEMOGLOBIN 37 pg (27-31); MEAN CORPUSCULAR HGB CONC 34 % (32-36); MEAN CORPUSCULAR VOLUME 110 fL (79.0-98.0); MONOCYTES # (AUTO) 0.3 K/uL (0.0-1.0); MONOCYTES % (AUTO) 5.1 % (1.7-9.3); NEUTROPHILS # (AUTO) 4.8 K/uL (1.8-7.7); PLATELET COUNT (AUTO) 129 K/uL (130-430); RED BLOOD CELL COUNT(AUTO) 2.86 MIL/uL (4.2-6.2); RED CELL DISTRIBUTION WIDTH 16.5 % (9.0-15.0); WHITE BLOOD COUNT (AUTO) 6.3 K/uL (4.8-10.8)
[2022-01-31 08:01] LABS: CALCIUM 8.3 mg/dL (8.4-11.0); CREATININE 0.77 mg/dL (0.55-1.30); POTASSIUM 3.9 mmol/L (3.5-5.1)
[2022-01-31 08:33] LABS: NEUTROPHILS % (AUTO) 75.8 % (40.0-70.0)
[2022-01-31] MEDS: D5/0.45 NS 1,000 ML IV SCH (08:45)
[2022-01-31] MEDS ORDERED: MULTIVITAMINS TAB 1 TABLET PO ONE (10:00)
[2022-01-31] MEDS ORDERED: THIAMINE HCL 100 MG TABLET PO ONE (10:00)
[2022-01-31] MEDS ORDERED: PANTOPRAZOLE SODIUM 40 MG TAB PO ONE (10:00)
[2022-01-31] MEDS ORDERED: FOLIC ACID 1 MG TABLET PO ONE (10:00)
[2022-01-31] MEDS: chlordiazePOXIDE HCL 25 MG CAPSULE PO PRN ×2 (10:48→19:49)
[2022-01-31] MEDS: ONDANSETRON HCL 4 MG/2 ML VIAL IVP PRN (10:55)
[2022-01-31] MEDS: cefTRIAXone 1 GM IVPB PREMIX 50 ML IV SCH (11:30)
[2022-01-31 11:31] VITALS: BP_SYST 94
[2022-01-31 15:41] VITALS: BP_SYST 109
[2022-01-31 20:00] VITALS: BP_SYST 104
[2022-02-01] VITALS (8 sets, daily range): BP systolic 95–147
[2022-02-01] MEDS: D5/0.45 NS 1,000 ML IV SCH (00:03)
[2022-02-01] MEDS: chlordiazePOXIDE HCL 25 MG CAPSULE PO PRN ×3 (02:23→17:23)
[2022-02-01 07:04] LABS: INR 1.4 (0.8-1.2); PROTHROMBIN TIME 14.3 SECS (9.5-12.5)
[2022-02-01 07:13] LABS: ALBUMIN 1.7 g/dL (3.4-4.8); CALCIUM 8.5 mg/dL (8.4-11.0); CREATININE 0.7 mg/dL (0.55-1.30); POTASSIUM 3.6 mmol/L (3.5-5.1); TOTAL BILIRUBIN 1.7 mg/dL (0.0-1.0)
[2022-02-01 07:52] LABS: BASOPHILS % (AUTO) 0.6 % (0.0-2.0); EOSINOPHILS # (AUTO) 0.1 K/uL (0.0-0.4); EOSINOPHILS % (AUTO) 1.4 % (0.0-4.0); HEMATOCRIT 31.5 % (36-48); HEMOGLOBIN 10.6 g/dL (12.0-16.0); LYMPHOCYTES # (AUTO) 0.9 K/uL (1.0-5.5); LYMPHOCYTES % (AUTO) 17.4 % (20.5-51.5); MEAN CORPUSCULAR HEMOGLOBIN 37 pg (27-31); MEAN CORPUSCULAR HGB CONC 34 % (32-36); MEAN CORPUSCULAR VOLUME 110 fL (79.0-98.0); MONOCYTES # (AUTO) 0.3 K/uL (0.0-1.0); NEUTROPHILS % (AUTO) 75.6 % (40.0-70.0); PLATELET COUNT (AUTO) 140 K/uL (130-430); RED BLOOD CELL COUNT(AUTO) 2.86 MIL/uL (4.2-6.2); RED CELL DISTRIBUTION WIDTH 16.6 % (9.0-15.0); WHITE BLOOD COUNT (AUTO) 5.3 K/uL (4.8-10.8)
[2022-02-01] MEDS: PANTOPRAZOLE SODIUM 40 MG TAB PO SCH (09:46)
[2022-02-01] MEDS: MULTIVITAMINS TAB 1 TABLET PO SCH (09:46)
[2022-02-01] MEDS: FOLIC ACID 1 MG TABLET PO SCH (09:46)
[2022-02-01] MEDS: THIAMINE HCL 100 MG TABLET PO SCH (09:47)
[2022-02-01] MEDS: cefTRIAXone 1 GM IVPB PREMIX 50 ML IV SCH (12:32)
[2022-02-01] MEDS: ONDANSETRON HCL 4 MG/2 ML VIAL IVP PRN (12:54)
[2022-02-01] MEDS: LORazepam 2 MG/ML VIAL IVP PRN (23:29)
[2022-02-02 00:40] VITALS: BP_SYST 109
[2022-02-02] MEDS: chlordiazePOXIDE HCL 25 MG CAPSULE PO PRN ×2 (03:59→11:11)
[2022-02-02 08:00] VITALS: BP_SYST 101
[2022-02-02] MEDS: D5/0.45 NS 1,000 ML IV SCH (08:00)
[2022-02-02] MEDS: FOLIC ACID 1 MG TABLET PO SCH (08:47)
[2022-02-02] MEDS: MULTIVITAMINS TAB 1 TABLET PO SCH (08:48)
[2022-02-02] MEDS: PANTOPRAZOLE SODIUM 40 MG TAB PO SCH (08:48)
[2022-02-02] MEDS: ONDANSETRON HCL 4 MG/2 ML VIAL IVP PRN (08:48)
[2022-02-02] MEDS: THIAMINE HCL 100 MG TABLET PO SCH (08:48)
[2022-02-02] MEDS: MORPHINE 2 MG/ML INJ. SYRINGE IVP PRN (08:49)
[2022-02-02] MEDS: cefTRIAXone 1 GM IVPB PREMIX 50 ML IV SCH (11:11)
[2022-02-02] MEDS: guaiFENesin 200 MG/10 ML UDC PO PRN (11:11)
[2022-02-02 11:33] VITALS: BP_SYST 104
[2022-02-02 15:31] VITALS: BP_SYST 106
[2022-02-02 20:00] VITALS: BP_SYST 111
[2022-02-03] MEDS: D5/0.45 NS 1,000 ML IV SCH ×2 (00:02→16:01)
[2022-02-03] MEDS: LORazepam 2 MG/ML VIAL IVP PRN (00:03)
[2022-02-03 00:26] VITALS: BP_SYST 96
[2022-02-03] MEDS ORDERED: SIMETHICONE 40 MG/0.6 ML ML ONE (07:34)
[2022-02-03] MEDS ORDERED: MIDAZOLAM HCL 5 MG/5 ML VIAL ONE (07:34)
[2022-02-03] MEDS ORDERED: fentaNYL CITRATE/PF 100 MCG/2 ML AMP ONE (07:34)
[2022-02-03] MEDS ORDERED: BENZOCAINE 20% 0.5mL UD SPRAY MM ONE (07:34)
[2022-02-03 08:00] VITALS: BP_SYST 100
[2022-02-03 08:10] LABS: BASOPHILS # (AUTO) 0.1 K/uL (0.0-0.2); EOSINOPHILS # (AUTO) 0.1 K/uL (0.0-0.4); EOSINOPHILS % (AUTO) 1.4 % (0.0-4.0); HEMATOCRIT 32.1 % (36-48); HEMOGLOBIN 10.8 g/dL (12.0-16.0); LYMPHOCYTES # (AUTO) 1.3 K/uL (1.0-5.5); LYMPHOCYTES % (AUTO) 22.3 % (20.5-51.5); MEAN CORPUSCULAR HEMOGLOBIN 37 pg (27-31); MEAN CORPUSCULAR HGB CONC 34 % (32-36); MEAN CORPUSCULAR VOLUME 110 fL (79.0-98.0); MONOCYTES # (AUTO) 0.5 K/uL (0.0-1.0); MONOCYTES % (AUTO) 9.4 % (1.7-9.3); NEUTROPHILS # (AUTO) 3.8 K/uL (1.8-7.7); NEUTROPHILS % (AUTO) 65.9 % (40.0-70.0); PLATELET COUNT (AUTO) 158 K/uL (130-430); RED BLOOD CELL COUNT(AUTO) 2.91 MIL/uL (4.2-6.2); RED CELL DISTRIBUTION WIDTH 16.6 % (9.0-15.0); WHITE BLOOD COUNT (AUTO) 5.7 K/uL (4.8-10.8)
[2022-02-03] MEDS ORDERED: MEPERIDINE 100 MG INJ. 100 MG/ML VIAL ONE (08:15)
[2022-02-03] MEDS ORDERED: METOCLOPRAMIDE HCL 10 MG/2 ML VIAL IVP ONE (08:45)
[2022-02-03 08:47] LABS: ALBUMIN 1.6 g/dL (3.4-4.8); CALCIUM 8.2 mg/dL (8.4-11.0); CREATININE 0.66 mg/dL (0.55-1.30); POTASSIUM 3.7 mmol/L (3.5-5.1); TOTAL BILIRUBIN 1.4 mg/dL (0.0-1.0)
[2022-02-03] MEDS: MULTIVITAMINS TAB 1 TABLET PO SCH (09:29)
[2022-02-03] MEDS: FOLIC ACID 1 MG TABLET PO SCH (09:29)
[2022-02-03] MEDS: THIAMINE HCL 100 MG TABLET PO SCH (09:29)
[2022-02-03] MEDS: PANTOPRAZOLE SODIUM 40 MG TAB PO SCH (09:29)
[2022-02-03 11:34] VITALS: BP_SYST 99
[2022-02-03] MEDS: cefTRIAXone 1 GM IVPB PREMIX 50 ML IV SCH (12:37)
[2022-02-03] MEDS: METOCLOPRAMIDE HCL 10 MG/2 ML VIAL IVP SCH ×2 (12:37→17:12)
[2022-02-03] MEDS: chlordiazePOXIDE HCL 25 MG CAPSULE PO PRN ×2 (12:50→21:53)
[2022-02-03 16:10] VITALS: BP_SYST 100
[2022-02-03] MEDS: MORPHINE 2 MG/ML INJ. SYRINGE IVP PRN (16:11)
[2022-02-04] VITALS: BP_SYST 100
[2022-02-04] MEDS: METOCLOPRAMIDE HCL 10 MG/2 ML VIAL IVP SCH ×4 (00:40→17:49)
[2022-02-04] MEDS: chlordiazePOXIDE HCL 25 MG CAPSULE PO PRN ×3 (04:54→22:29)
[2022-02-04] MEDS: MORPHINE 2 MG/ML INJ. SYRINGE IVP PRN (05:25)
[2022-02-04 08:00] VITALS: BP_SYST 100
[2022-02-04] MEDS: THIAMINE HCL 100 MG TABLET PO SCH (09:40)
[2022-02-04] MEDS: MULTIVITAMINS TAB 1 TABLET PO SCH (09:40)
[2022-02-04] MEDS: FOLIC ACID 1 MG TABLET PO SCH (09:40)
[2022-02-04] MEDS: PANTOPRAZOLE SODIUM 40 MG TAB PO SCH (09:40)
[2022-02-04] MEDS: ONDANSETRON HCL 4 MG/2 ML VIAL IVP PRN ×2 (09:40→17:41)
[2022-02-04] MEDS: LORazepam 2 MG/ML VIAL IVP PRN ×2 (09:46→18:04)
[2022-02-04] MEDS: cefTRIAXone 1 GM IVPB PREMIX 50 ML IV SCH (11:32)
[2022-02-04 11:39] VITALS: BP_SYST 105
[2022-02-04] MEDS: D5/0.45 NS 1,000 ML IV SCH (12:45)
[2022-02-04 16:30] VITALS: BP_SYST 106
[2022-02-04] MEDS: guaiFENesin 200 MG/10 ML UDC PO PRN (18:49)
[2022-02-04 20:00] VITALS: BP_SYST 116
[2022-02-05] VITALS: BP_SYST 91
[2022-02-05 00:55] VITALS: BP_SYST 98
[2022-02-05] MEDS: METOCLOPRAMIDE HCL 10 MG/2 ML VIAL IVP SCH ×4 (01:12→18:35)
[2022-02-05] MEDS: D5/0.45 NS 1,000 ML IV SCH (04:50)
[2022-02-05 06:33] LABS: BASOPHILS % (AUTO) 0.9 % (0.0-2.0); EOSINOPHILS # (AUTO) 0.1 K/uL (0.0-0.4); EOSINOPHILS % (AUTO) 1.6 % (0.0-4.0); HEMATOCRIT 30.2 % (36-48); HEMOGLOBIN 10.1 g/dL (12.0-16.0); LYMPHOCYTES # (AUTO) 1.1 K/uL (1.0-5.5); LYMPHOCYTES % (AUTO) 20.4 % (20.5-51.5); MEAN CORPUSCULAR HEMOGLOBIN 37 pg (27-31); MEAN CORPUSCULAR HGB CONC 34 % (32-36); MEAN CORPUSCULAR VOLUME 110 fL (79.0-98.0); MONOCYTES # (AUTO) 0.5 K/uL (0.0-1.0); MONOCYTES % (AUTO) 8.8 % (1.7-9.3); NEUTROPHILS # (AUTO) 3.7 K/uL (1.8-7.7); NEUTROPHILS % (AUTO) 68.3 % (40.0-70.0); PLATELET COUNT (AUTO) 183 K/uL (130-430); RED BLOOD CELL COUNT(AUTO) 2.74 MIL/uL (4.2-6.2); RED CELL DISTRIBUTION WIDTH 16.6 % (9.0-15.0); WHITE BLOOD COUNT (AUTO) 5.5 K/uL (4.8-10.8)
[2022-02-05 06:56] LABS: CALCIUM 7.8 mg/dL (8.4-11.0); CREATININE 0.52 mg/dL (0.55-1.30); POTASSIUM 3.4 mmol/L (3.5-5.1)
[2022-02-05 08:34] VITALS: BP_SYST 89
[2022-02-05] MEDS: FOLIC ACID 1 MG TABLET PO SCH (09:32)
[2022-02-05] MEDS: THIAMINE HCL 100 MG TABLET PO SCH (09:32)
[2022-02-05] MEDS: MULTIVITAMINS TAB 1 TABLET PO SCH (09:32)
[2022-02-05] MEDS: PANTOPRAZOLE SODIUM 40 MG TAB PO SCH (09:32)
[2022-02-05] MEDS: cefTRIAXone 1 GM in D5W 50 ML IV SCH (12:13)
[2022-02-05] MEDS: chlordiazePOXIDE HCL 25 MG CAPSULE PO PRN ×2 (12:26→23:26)
[2022-02-05 12:37] VITALS: BP_SYST 94
[2022-02-05 17:32] VITALS: BP_SYST 102
[2022-02-05 20:00] VITALS: BP_SYST 105
[2022-02-05] MEDS: ONDANSETRON HCL 4 MG/2 ML VIAL IVP PRN (23:19)
[2022-02-05] MEDS: guaiFENesin 200 MG/10 ML UDC PO PRN (23:20)
[2022-02-06] MEDS: METOCLOPRAMIDE HCL 10 MG/2 ML VIAL IVP SCH ×4 (01:02→18:00)
[2022-02-06 01:29] VITALS: BP_SYST 98
[2022-02-06] MEDS: D5/0.45 NS 1,000 ML IV SCH (06:04)
[2022-02-06] MEDS: PANTOPRAZOLE SODIUM 40 MG TAB PO SCH (09:44)
[2022-02-06] MEDS: THIAMINE HCL 100 MG TABLET PO SCH (09:44)
[2022-02-06] MEDS: FOLIC ACID 1 MG TABLET PO SCH (09:44)
[2022-02-06] MEDS: MULTIVITAMINS TAB 1 TABLET PO SCH (09:44)
[2022-02-06] MEDS: cefTRIAXone 1 GM in D5W 50 ML IV SCH (12:22)
[2022-02-06 13:08] VITALS: BP_SYST 94
[2022-02-06] MEDS ORDERED: HYDROcodone/ACETAMIN 5-325 MG TAB (NORCO/ VICODIN) PO PRN (13:45)
[2022-02-06] MEDS: chlordiazePOXIDE HCL 25 MG CAPSULE PO SCH ×2 (15:00→21:18)
[2022-02-06] MEDS: ONDANSETRON HCL 4 MG/2 ML VIAL IVP PRN (16:41)
[2022-02-06 17:43] VITALS: BP_SYST 115
[2022-02-06 20:00] VITALS: BP_SYST 92
[2022-02-07 00:12] VITALS: BP_SYST 97
[2022-02-07] MEDS: guaiFENesin 200 MG/10 ML UDC PO PRN (00:45)
[2022-02-07] MEDS: METOCLOPRAMIDE HCL 10 MG/2 ML VIAL IVP SCH ×4 (00:45→18:00)
[2022-02-07] MEDS: D5/0.45 NS 1,000 ML IV SCH ×2 (00:45→20:48)
[2022-02-07] MEDS: LORazepam 2 MG/ML VIAL IVP PRN (00:57)
[2022-02-07 07:14] LABS: BASOPHILS # (AUTO) 0.1 K/uL (0.0-0.2); BASOPHILS % (AUTO) 1.2 % (0.0-2.0); EOSINOPHILS # (AUTO) 0.1 K/uL (0.0-0.4); EOSINOPHILS % (AUTO) 1.8 % (0.0-4.0); HEMATOCRIT 31.4 % (36-48); HEMOGLOBIN 10.3 g/dL (12.0-16.0); LYMPHOCYTES # (AUTO) 1.1 K/uL (1.0-5.5); LYMPHOCYTES % (AUTO) 20.3 % (20.5-51.5); MEAN CORPUSCULAR HEMOGLOBIN 36 pg (27-31); MEAN CORPUSCULAR HGB CONC 33 % (32-36); MEAN CORPUSCULAR VOLUME 111 fL (79.0-98.0); MONOCYTES # (AUTO) 0.4 K/uL (0.0-1.0); MONOCYTES % (AUTO) 7.8 % (1.7-9.3); NEUTROPHILS # (AUTO) 3.9 K/uL (1.8-7.7); NEUTROPHILS % (AUTO) 68.9 % (40.0-70.0); PLATELET COUNT (AUTO) 209 K/uL (130-430); RED BLOOD CELL COUNT(AUTO) 2.82 MIL/uL (4.2-6.2); RED CELL DISTRIBUTION WIDTH 16.7 % (9.0-15.0); WHITE BLOOD COUNT (AUTO) 5.7 K/uL (4.8-10.8)
[2022-02-07 08:00] VITALS: BP_SYST 93
[2022-02-07 08:11] LABS: CALCIUM 8.6 mg/dL (8.4-11.0); CREATININE 0.69 mg/dL (0.55-1.30); POTASSIUM 3.3 mmol/L (3.5-5.1)
[2022-02-07] MEDS: chlordiazePOXIDE HCL 25 MG CAPSULE PO SCH ×3 (09:23→20:42)
[2022-02-07] MEDS: FOLIC ACID 1 MG TABLET PO SCH (09:23)
[2022-02-07] MEDS: MULTIVITAMINS TAB 1 TABLET PO SCH (09:23)
[2022-02-07] MEDS: PANTOPRAZOLE SODIUM 40 MG TAB PO SCH (09:24)
[2022-02-07] MEDS: THIAMINE HCL 100 MG TABLET PO SCH (09:24)
[2022-02-07] MEDS: ONDANSETRON HCL 4 MG/2 ML VIAL IVP PRN (09:24)
[2022-02-07] MEDS: CIPROFLOXACIN HCL 500 MG TABLET PO SCH ×2 (10:00→20:43)
[2022-02-07 12:00] VITALS: BP_SYST 100
[2022-02-07 16:00] VITALS: BP_SYST 106
[2022-02-07 21:02] VITALS: BP_SYST 104
[2022-02-08 00:18] VITALS: BP_SYST 101
[2022-02-08] MEDS: METOCLOPRAMIDE HCL 10 MG/2 ML VIAL IVP SCH ×2 (06:00→11:37)
[2022-02-08] MEDS: MULTIVITAMINS TAB 1 TABLET PO SCH (09:54)
[2022-02-08] MEDS: FOLIC ACID 1 MG TABLET PO SCH (09:54)
[2022-02-08] MEDS: chlordiazePOXIDE HCL 25 MG CAPSULE PO SCH (09:54)
[2022-02-08] MEDS: PANTOPRAZOLE SODIUM 40 MG TAB PO SCH (09:54)
[2022-02-08] MEDS: THIAMINE HCL 100 MG TABLET PO SCH (09:55)
[2022-02-08] MEDS: CIPROFLOXACIN HCL 500 MG TABLET PO SCH (10:00)
[2022-02-08] MEDS ORDERED: CIPR250T4 PO (11:48)
[2022-02-08 12:05] VITALS: BP_SYST 105
[2022-02-08 13:20] VITALS: BP_SYST 105
[2022-02-08] MEDS ORDERED: ONDA-8 TL (13:26)
== END 2022-02-08 13:15 | disposition home health service (06) | DRG 241 ==
LOC: SED 11:37 → STU 16:42 → SMU 01-30 18:19
PROVIDERS: ADMIT Internal Medicine; ATTEND Internal Medicine
PROC: 0DB68ZX Excision of Stomach, Via Natural or Artificial Opening Endoscopic, Diagnostic (ICD-10-PCS; 2022-02-03)
PROC: 0DBA8ZX Excision of Jejunum, Via Natural or Artificial Opening Endoscopic, Diagnostic (ICD-10-PCS; principal; 2022-02-03 08:15)
DX: K29.20 Alcoholic gastritis without bleeding (principal); E43 Unspecified severe protein-calorie malnutrition; K72.90 Hepatic failure, unspecified without coma; R65.10 Systemic inflammatory response syndrome (SIRS) of non-infectious origin without acute organ dysfunction; E72.4 Disorders of ornithine metabolism; K70.10 Alcoholic hepatitis without ascites; E86.0 Dehydration; N39.0 Urinary tract infection, site not specified; B96.1 Klebsiella pneumoniae [K. pneumoniae] as the cause of diseases classified elsewhere; F10.239 Alcohol dependence with withdrawal, unspecified; Z20.822 Contact with and (suspected) exposure to COVID-19; Z60.2 Problems related to living alone; K21.9 Gastro-esophageal reflux disease without esophagitis; F10.229 Alcohol dependence with intoxication, unspecified; K91.858 Other complications of intestinal pouch; Z86.16 Personal history of COVID-19; Z90.49 Acquired absence of other specified parts of digestive tract; Z98.84 Bariatric surgery status; Z68.29 Body mass index [BMI] 29.0-29.9, adult; Z79.899 Other long term (current) drug therapy
CPT/HCPCS: 36415; 43239; 73090; 73502; 76700-TC; 80048; 80053; 81000; 82140; 83690; 85025; 85610-TC; 87086; 88305; 88312; 88313; 96365; 96366; 96375; 96376; 97110-GP; 97116-GP; 97530-GP; 99291; C9113; G0378; G0482; J0696; J2060; J2175; J2250; J2270; J2405; J2765; J3010; J3411; J3475; J3490; J7060